=== PATIENT | female | born 1990 | race Caucasian/White ===

== ENCOUNTER 2018-11-05 18:59 | Outpatient (REF) | payer BC, SELFPAY ==
[2018-11-05 19:44] LABS: HCT 40.6 % (36.0-46.0); HGB 13.7 g/dL (12.0-15.5); Mean Corp. HGB Concentration 33.7 g/dL (32.0-36.0); Mean Corpuscular Hemoglobin 29.6 pg (27.0-33.0); Mean Corpuscular Volume 87.7 fL (80-95); Platelet Count 342 x1000/uL (130-400); RBC 4.63 m/cumm (4.00-5.20); RBC Distribution Width 11.9 % (11.7-14.6); White Blood Cell Count 11.01 k/cumm (4.4-10.8)
== END 2018-11-05 19:19 ==
LOC: NCHCN 18:59
PROVIDERS: PCP Internal Medicine; Visit Provider Nurse Practitioner Family
DX: G43.909 Migraine, unspecified, not intractable, without status migrainosus (principal)
CPT/HCPCS: 80053; 85027

== ENCOUNTER 2019-03-30 12:12 | Outpatient (CLI) | payer BC, SELFPAY ==
[2019-03-30 13:30] LABS: ALT 91 U/L (14-59); AST 32 U/L (15-37); Albumin 4.2 g/dL (3.4-5.0); Alkaline Phosphatase 85 U/L (46-116); Anion Gap 9.6 mmol/L (3-11); BUN 13 mg/dL (7-18); Bilirubin, Total 0.6 mg/dL (0.2-1.0); CO2 29.4 mmol/L (21.0-32.0); CREATININE 0.81 mg/dL (0.55-1.02); Calcium 9.7 mg/dL (8.5-10.1); Chloride 104 mmol/L (98-107); Glucose 85 mg/dL (74-106); Potassium 4.1 mmol/L (3.5-5.1); Sodium 143 mmol/L (136-145); Total Protein 7.6 g/dL (6.4-8.2)
== END 2019-03-30 12:32 ==
PROVIDERS: PCP Internal Medicine; Visit Provider Nurse Practitioner Family
DX: G43.909 Migraine, unspecified, not intractable, without status migrainosus (principal)
CPT/HCPCS: 36415; 80053

== ENCOUNTER 2019-05-10 13:00 | Outpatient (CLI) | payer BC, SELFPAY ==
[2019-05-10 14:27] LABS: ALT 21 U/L (14-59); AST 14 U/L (15-37)
== END 2019-05-10 13:20 ==
PROVIDERS: PCP Internal Medicine; Visit Provider Nurse Practitioner Psychiatric/Mental Health
DX: Z51.81 Encounter for therapeutic drug level monitoring (principal)
CPT/HCPCS: 36415; 84450; 84460

== ENCOUNTER 2020-01-20 13:55 | Outpatient (REF) | payer BC, SELFPAY ==
--- NOTE | 2020-01-20 11:50 | PAPFT_PTH ---
PATIENT: Kathy Elias LOC: [facility]#:[id number] AGE/SX: 29/F ROOM: RE01/20/[address]: Ron Cortés : 1990 BED: DIS: 01/20/2020 SPEC #: [id number] RECD: 01/20/20 17:56 STATUS: TERRENCE REJose #: [id number] ASHELY: 01/20/20 11:[address]: Ron Cortés DEPT: [facility] Cytology RECD BY: Chen Marlow ENTERED: 01/20/20 17:56 SP TYPE: PAPFT OTHR DR: Ra Kaur Tissues: 1 - CX/ENDOCX FOR PAP SMEARS Procedures: PAP THIN PREP/[facility] Screening Comments: [id number] ([facility])
== END 2020-01-20 14:15 ==
LOC: NCHCN 13:55
PROVIDERS: PCP Internal Medicine; Visit Provider Nurse Practitioner Family
DX: Z00.00 Encounter for general adult medical examination without abnormal findings (principal); Z12.4 Encounter for screening for malignant neoplasm of cervix
CPT/HCPCS: 88142; 87624

== ENCOUNTER 2020-01-21 11:30 | Outpatient (REF) | payer BC, SELFPAY ==
[2020-02-03 09:48] LABS: Helicobacter pylori Ag, Feces Negative (Negative)
== END 2020-01-21 11:50 ==
LOC: NCHCN 11:30
PROVIDERS: PCP Internal Medicine; Visit Provider Nurse Practitioner Family
DX: R10.32 Left lower quadrant pain (principal)
CPT/HCPCS: 87338

== ENCOUNTER 2020-02-10 03:16 | Outpatient (CLI) | payer BC, SELFPAY ==
[2020-02-11 21:54] LABS: SARS-CoV-2 RNA Not Detected (NotDetected); SARS-CoV-2 RNA Source Nasal/Nares
== END 2020-02-10 03:36 ==
PROVIDERS: PCP Internal Medicine; Visit Provider Surgery
DX: Z11.59 Encounter for screening for other viral diseases (principal); Z01.818 Encounter for other preprocedural examination
CPT/HCPCS: U0003

== ENCOUNTER 2020-02-14 06:58 | Day surgery (SDC) | payer BC, SELFPAY ==
[2020-02-14 07:40] VITALS: BP 117/84; PULSE 81; RESP 18; TEMP 36.7; O2SAT 97
[2020-02-14] MEDS: Lactated Ringers 1,000 ML 80 ML IV (07:55)
--- NOTE | 2020-02-14 09:10 | STOM_PTH ---
PATIENT: Kathy Elias LOC: [facility]#:[id number] AGE/SX: 29/F ROOM: RE02/14/[address]: Katelyn Leong : 1990 BED: DIS: 02/14/2020 SPEC #: [id number] RECD: 02/14/20 12:46 STATUS: TERRENCE REQ #: [id number] ASHELY: 02/14/20 09:[address]: Katelyn Leong DEPT: Surgical Specimen RECD BY: Chen Marlow ENTERED: 02/14/20 12:48 SP TYPE: STOMACH OTHR DR: Ra Kaur Tissues: 1 - BIOPSY BOWEL 2 - STOMACH BIOPSY 3 - STOMACH BIOPSY 4 - ESOPHAGUS BIOPSY 5 - ESOPHAGUS BIOPSY 6 - ESOPHAGUS BIOPSY Procedures: GROSS AND MICRO LEVEL 4 Comments: [id number]
--- NOTE | 2020-02-14 09:25 | W.PM.ENDDOP ---
Date of service: 02/14/20 Time of Service: 09:25 Endoscopy Report DATE OF PROCEDURE: 02/14/20 PRE-OP DIAGNOSIS: gerd POST-OP DIAGNOSIS: other (gastritis/ hiatal hernia/esophagitis ) PROCEDURE: ehd w/ bx SURGEON: Katelyn Leong ANESTHESIA: MAC ESTIMATED BLOOD LOSS: 1 PATHOLOGY: other COMPLICATIONS: None DISPOSITION: same day PROCEDURE DESCRIPTION: After informed consent was obtained the patient was take to the procedure room and placed in a supine position. Monitors were applied and a time out was done. The patients name, date of , procedure type, allergies to medications and metal in their body was reviewed. A bite block was placed and the patient was sedated. Once sedated and comfortable the gastroscope was advanced through the oropharynx which was grossly normal into the esophagus. The proximal and mid-esophagus were . nlIn the distal esophagus there was: mild esophagitis adn small hiatal hernia. no varices or ulcer. The scope was advanced into the stomach and through the pylorus into the 3rd portion of the duodenum. The duodenum was noted to be nl. Biopsies were done . All specimen is retrieved and no bleeding is noted. The scope was retracted back into the stomach and biopsies were done to rule out H. pylori. There were no ulcers. there is some mild gastritis. The scope was retroflexed. The cardia and fundus were noted to be normal. There small a hiatal hernia noted. The scope was retracted back into the esophagus and biopsies were done of the GE junction to rule out Perkins's. The Z line was irregular- possible some Barrtett's. No lg tongues. The scope was removed and the patient was woken up and taken back to [facility] in stable condition.
--- NOTE | 2020-02-14 09:29 | W.PM.DSUDISC ---
Discharge Plan Disposition Patient Disposition: HOME Condition: Good Discharge Details Attending Provider: Katelyn Leong Primary Care Provider: Ra Kaur [place] Meds and New Rx's Prescriptions: New sucralfate [Carafate] 1 gram tablet 1 g PO .qhs adn q8hprn 365 Days Qty: 60 RF: 12 Continued acetaminophen [Tylenol Extra Strength] 500 mg tablet 1,000 mg PO Q6H PRNRF: 0 fexofenadine [Merline Allergy] 60 mg tablet 60 mg PO Q12H RF: 0 lamotrigine [Lamictal] 100 mg tablet 100 mg PO DAILY RF: 0 gabapentin 100 mg capsule 100 mg PO QHS RF: 0 pantoprazole 40 mg tablet,delayed release (DR/EC) 40 mg PO DAILY RF: 0 montelukast 10 mg tablet 10 mg PO DAILY RF: 0 budesonide-formoterol [Symbicort] 80-4.5 mcg/actuation HFA aerosol inhaler 2 puff inhalation BID RF: 0 albuterol sulfate [Proventil HFA] 1 PUFF HFA aerosol inhaler 2 puff inhalation Q4H PRN PRNRF: 0 Discontinued ibuprofen 200 mg tablet 800 mg PO Q6H PRNRF: 0 Discharge Instructions Additional Instructions: Continue with lifestyle modifications: no alcohol, tobacco products, Aspirin or NSAID's (ibuprofen, Motrin, Naprosyn, aleve, etc), soda pop/any carbonated beverages, caffeine (including tea & chocolate), and acidic foods, (tomatoes, citrus, onions, peppermints) spicy or foods. Do not lie down for 30 minutes after eating, and do not eat 2 hours prior to bedtime. Avoid wearing tight fitting clothing/ belts -Cont protonix daily lifeslong. take on an empty stomach -stop smoking -take a carafate at bedtime. Take one prior to taking ibuprofen. -dont' drink coffee/soda on an empty stomach. -can take carafate as needed for breakthrough symptoms Activity:: no lifting over 20#'s or strenuous activity x 24 Diet:: small light meals x 24hrs Discharge Orders Discharge Orders: Discharge Order (Routine); Ordered 02/14/20 Ordered By: Katelyn Leong DS: Diagnosis Discharge Diagnosis (1) Hiatal hernia with GERD: Status: Acute
[2020-02-14 10:10] VITALS: BP 128/77; PULSE 68; RESP 16; TEMP 36.1; O2SAT 100
== END 2020-02-14 10:39 | disposition home or self-care (01) ==
PROVIDERS: PCP Internal Medicine; Visit Provider Surgery
PROC: 0DJ68ZZ Inspection of Stomach, Via Natural or Artificial Opening Endoscopic (ICD-10-PCS; CPT 43235; principal; 2020-02-14 08:30)
DX: K29.70 Gastritis, unspecified, without bleeding (principal); K44.9 Diaphragmatic hernia without obstruction or gangrene; K20.90 Esophagitis, unspecified without bleeding
CPT/HCPCS: 43239; 81025; 88305; J2001; J2704

== ENCOUNTER 2020-03-01 11:05 | Outpatient (REF) | payer BC, SELFPAY ==
[2020-03-03 12:23] LABS: Almond IgE <0.35 kU/L; Brazil Nut IgE <0.35 kU/L; Cashew IgE <0.35 kU/L; Clam IgE <0.35 kU/L; Crab IgE <0.35 kU/L; Hazelnut-Food IgE <0.35 kU/L; Lobster IgE <0.35 kU/L; Milk, IgE <0.35 kU/L; Oyster IgE <0.35 kU/L; Peanut IgE <0.10 kU/L (<0.70); Pecan-Food IgE <0.35 kU/L; Scallop IgE <0.35 kU/L; Shrimp IgE <0.35 kU/L; Soybean IgE <0.35 kU/L; Walnut-Food IgE <0.35 kU/L
[2020-03-06 12:44] LABS: IgA 172 mg/dL (85-499); Interpretation (See Note); Tissue Transglutaminase IgA <1.2 U/mL (<4.0)
[2020-03-07 14:10] LABS: CLASS 0; Egg Whole IgE <0.10 kU/L (<0.35)
== END 2020-03-01 11:25 ==
LOC: LBN 11:05
PROVIDERS: PCP Internal Medicine; Visit Provider Surgery
DX: J45.20 Mild intermittent asthma, uncomplicated (principal); K20.0 Eosinophilic esophagitis; K21.9 Gastro-esophageal reflux disease without esophagitis; K44.9 Diaphragmatic hernia without obstruction or gangrene
CPT/HCPCS: 82784; 83516; 86003

== ENCOUNTER 2021-08-22 15:32 | Outpatient (REF) | payer BC, SELFPAY ==
[2021-08-22 16:05] LABS: Calculated LDL 101 mg/dL (<100); Cholesterol 169 mg/dL (<200); HDL Cholesterol 54 mg/dL (40-60); Triglyceride 70 mg/dL (<150)
== END 2021-08-22 15:33 | disposition home or self-care (01) ==
LOC: NCHCN 15:32
PROVIDERS: PCP Internal Medicine; Visit Provider Physician Assistant
DX: Z13.220 Encounter for screening for lipoid disorders (principal)
CPT/HCPCS: 80061

== ENCOUNTER 2021-12-07 10:27 | Emergency (ER) | payer BC, SELFPAY ==
[2021-12-07 10:33] VITALS: BP 119/67; PULSE 76; RESP 18; TEMP 36.7; O2SAT 97
--- NOTE | 2021-12-07 10:45 | W.ED.GENAD ---
Discharge Plan Disposition Patient Disposition: HOME Condition: Stable Discharge Details Clinical Impression: Finger laceration Primary Care Provider: Ra Kaur ED Provider: Adithya Hurley Home Meds and New Rx's Prescriptions: Continued acetaminophen [Tylenol Extra Strength] 500 mg tablet 1,000 mg PO Q6H PRN fexofenadine [Merline Allergy] 60 mg tablet 60 mg PO Q12H lamotrigine [Lamictal] 100 mg tablet 100 mg PO DAILY gabapentin 100 mg capsule 100 mg PO QHS Rx Instructions: 1-2 caps every night as needed pantoprazole 40 mg tablet,delayed release (DR/EC) 40 mg PO DAILY montelukast 10 mg tablet 10 mg PO DAILY budesonide-formoterol [Symbicort] 80-4.5 mcg/actuation HFA aerosol inhaler 2 puff inhalation BID albuterol sulfate [Proventil HFA] 1 PUFF HFA aerosol inhaler 2 puff inhalation Q4H PRN PRN sucralfate [Carafate] 1 gram tablet 1 g PO .qhs adn q8hprn 365 Days Qty: 60 12RF Rx Instructions: take 1 at bedtime and q8hrs prn heartburn citalopram 20 mg Tablet 20 mg PO DAILY Discharge Instructions Instructions: Finger Laceration (ED) Additional Instructions: Using shared decision making, at this time the decision to not proceed with suturing was decided. Instead opted for a finger splint, wear for the next 7-10 days to avoid reopening the laceration. [id number] Tylenol and/or Motrin as directed for discomfort. Tetanus status was updated today. Please watch for new or worsening symptoms and return to the ER for any concerns Medical Decision Making 31-year-old female, [id number], presents for a right finger laceration she sustained about 1 hour ago. Tetanus status will be updated today. We discussed the risk and benefits of suturing, she declines at this time. Given the presentation of the laceration I believe this to be perfectly reasonable. The wound was thoroughly cleaned and irrigated. An antibiotic dressing was applied. A finger splint has been applied. We discussed the importance of wearing the finger splint to avoid bending the finger and reopening the laceration. Standard discharge and return precautions were provided. Patient understands, is agreeable to this plan, and has no additional questions or concerns upon discharge. This documentation was generated using [employer] system, please disregard any oddities of phrase or misspellings. Medical Records Medical records reviewed: Yes I reviewed the patient's medical records. HPI General Mode of arrival: ambulatory. Date/Time Provider Initiated Documentation: 12/07/21 10:44. Limitations to Documentation: no limitations. Information obtained by: patient. History of Present Illness 31 year old F presents to the emergency department with the chief complaint of R middle finger lac, described as mild, with intensity rated at 3. Quality is described as aching, and is localized to the right and upper extremity. Patient reports no radiation. Patient started experiencing this hour(s) (1) and it has been constant. Immobilization improves symptom(s), Movement worsens symptoms . Patient notes no other symptoms.. Patient did receive the following treatments prior to arrival, none Related Data Home Medications Medication Instructions Recorded Confirmed albuterol sulfate 90 mcg/actuation 2 puff inhalation Q4H PRN PRN 08/13/15 12/07/21 aerosol inhaler (Proventil HFA) budesonide-formoterol HFA 80 2 puff inhalation BID 02/01/20 12/07/21 mcg-4.5 mcg/actuation aerosol inhaler (Symbicort) gabapentin 100 mg capsule 100 mg PO QHS 02/01/20 12/07/21 lamotrigine 100 mg tablet 100 mg PO DAILY 02/01/20 03/01/20 (Lamictal) montelukast 10 mg tablet 10 mg PO DAILY 02/01/20 03/01/20 pantoprazole 40 mg tablet,delayed 40 mg PO DAILY 02/01/20 12/07/21 release acetaminophen 500 mg tablet 1,000 mg PO Q6H PRN 02/04/20 03/01/20 (Tylenol Extra Strength) fexofenadine 60 mg tablet (Merline 60 mg PO Q12H 02/04/20 12/07/21 Allergy) sucralfate 1 gram tablet (Carafate) 1 g PO .qhs adn q8hprn 365 days 02/14/20 12/07/21 #60 tabs citalopram 20 mg tablet 20 mg PO DAILY 12/07/21 12/07/21 Previous Rx's Medication Instructions Recorded sucralfate 1 gram tablet (Carafate) 1 g PO .qhs adn q8hprn 365 days 02/14/20 #60 tabs Allergies Allergy/AdvReac Type Severity Reaction Status Date / Time cat dander Allergy Mild Verified 12/07/21 10:36 General Stated Complaint: Laceration GWEN: 4 Review of Systems Constitutional Constitutional: Denies fever(s) Musculoskeletal Musculoskeletal: Denies arthralgias, Denies numbness, Denies stiffness and Denies tingling Integumentary/Breasts Skin/Breast: Denies rash Neurologic Neurologic: Denies numbness and Denies tingling PFSH All Active Problems (Updated 12/07/21 @ 11:12 by ANUEL Jacobo) Finger laceration (Acute) Asthma, mild intermittent (Acute) Allergic eosinophilic esophagitis (Acute) Hiatal hernia with GERD (Acute) Medical History Abdominal pain, left lower quadrant Anxiety associated with depression Bipolar II disorder GERD (gastroesophageal reflux disease) Lower back pain Migraine without aura Sleep disorder TMJ tenderness, bilateral Surgical History H/O wisdom tooth extraction History of esophagogastroduodenoscopy (EGD) (~02/14/20) Family History Father Essential hypertension Grandmother Stroke Social History Smoking/Tobacco Use Status: Current-Occasional Smoking risk assessment performed?: Yes Alcohol Intake: current Alcohol Intake frequency: holidays/special occasions only Alcohol type: wine and hard liquor Drug use: Daily Substance use type: marijuana Details: no consistent tobaccon for 4 years Current gender identity: female Do you feel safe at home: Yes Do you feel safe in your relationship?: Yes Exam Const General: cooperative, healthy appearing, comfortable and no acute distress Orientation: alert and awake HENMT Head: normal to inspection, normocephalic and atraumatic Eyes Conjunctivae: conjunctivae normal Neck Neck: normal visual inspection, full ROM, trachea midline and supple Resp Effort & Inspection: normal respiratory effort and able to speak in complete sentences Cardio Rate: regular rate Rhythm: regular rhythm Skin General skin exam: no rashes or lesions noted Neuro General: patient alert, patient awake, moves all extremities and no focal motor deficits Cognition: normal cognition Speech: speech normal Gait: normal gait Motor: muscle tone normal throughout Sensory Exam: no sensory deficits noted Extrem General: full ROM and capillary refill normal Hand/finger images: 1. There is a well approximated, not actively bleeding, 2 cm laceration over the extensor aspect of the third digit, PIP joint. Neuro, vascular, tendon intact. 5-5 strength. Normal capillary refill Psych Appearance: grossly normal Mental Status: mental status grossly normal Course Vital Signs Vital signs: Vital Signs Temperature 36.7 C 12/07/21 10:33 Pulse 76 12/07/21 10:33 Respiratory Rate 18 12/07/21 10:33 Blood Pressure 119/67 12/07/21 10:33 Pulse Oximetry 97 12/07/21 10:33 Temperature 36.7 C 12/07/21 10:33 Temperature Source Temporal Artery Scan 12/07/21 10:33 Pulse 76 12/07/21 10:33 Respiratory Rate 18 12/07/21 10:33 Respiratory Effort Non-Labored 12/07/21 10:38 Blood Pressure 119/67 12/07/21 10:33 Blood Pressure Position Sitting 12/07/21 10:33 Pulse Oximetry 97 12/07/21 10:33 Oxygen Delivery Method Room Air 12/07/21 10:33 Oxygen Flow Rate 0 12/07/21 10:33 PAWSS Have you Been Recently Intoxicated or Drunk Within the Last 30 days?: No Have you Ever Experienced Previous Episodes of Alcohol Withdrawal?: No Have you ever Experienced Withdrawal Seizures?: No Have you ever Experienced Delirium Tremens(DT)s?: No Have you ever undergone Alcohol Rehabilitation Treatment (i.e, inpt ot outpatient treatment programs)?: No Have you ever Experienced Blackouts?: No Have you ever Combined Alcohol with other Downers within the last 90 days?: No Have you ever Combined Alcohol with any other Substance of Abuse during the last 90 days?: No Positive Blood Alcohol level on Presentation? [PCS.BAL]: No Evidence of Increased Autonomic Activity (i.e. HR>120, tremor, sweating, agitation, nausea)?: No Result: 0
== END 2021-12-07 11:23 | disposition home or self-care (01) ==
PROVIDERS: Emergency Provider Physician Assistant; PCP Internal Medicine
DX: S61.212A Laceration without foreign body of right middle finger without damage to nail, initial encounter (principal); F17.200 Nicotine dependence, unspecified, uncomplicated; Z23 Encounter for immunization; X58.XXXA Exposure to other specified factors, initial encounter
CPT/HCPCS: 29130; 90471; 99282

== ENCOUNTER 2023-09-12 10:18 | Outpatient (REF) | payer BC, SELFPAY ==
[2023-09-12 19:46] LABS: Abs Immature Grans 0.03 10^3/uL (0.0-0.06); Absolute Basophil Count 0.06 10^3/uL (0.0-0.2); Absolute Lymphocyte Count 1.95 10^3/uL (1.2-3.4); Absolute Monocyte Count 0.49 10^3/uL (0.1-0.8); Absolute Neutrophil Count 5.08 10^3/uL (1.2-6.7); Basophils % 0.7 %; Eosinophils % 8.4 %; HCT 39.8 % (36.0-46.0); Immature Grans % 0.4 %; Lymphocytes % 23.5 %; MCH 29.2 pg (27.0-33.0); MCHC 32.7 % (32.0-36.0); MCV 89 fL (80-95); MPV 9.7 fL (8.0-11.0); Monocytes % 5.9 %; Neutrophils % 61.1 %; Platelet Count 302 10^3/uL (130-400); RBC 4.45 10^6/uL (3.93-5.22); RDW 11.6 % (11.7-14.6); RDW-SD 37.8 fL; WBC 8.31 10^3/uL (4.4-10.8)
[2023-09-12 20:02] LABS: Iron 61 ug/dL (50-170); Total Iron Binding Capacity 284 ug/dL (250-450); Transferrin Sat 21 % (15-50)
[2023-09-12 20:20] LABS: Calculated LDL 99 mg/dL (<100); Cholesterol 166 mg/dL (<200); Ferritin 69 ng/mL (8-252); HDL Cholesterol 60 mg/dL (40-60); TSH 1.59 uIU/Ml (0.36-3.74); Triglyceride 35 mg/dL (<150)
[2023-09-12 20:38] LABS: FREE T4 0.96 ng/dL (0.76-1.46)
== END 2023-09-12 10:19 | disposition home or self-care (01) ==
LOC: NCHCN 10:18
PROVIDERS: PCP Physician Assistant; Visit Provider Physician Assistant
DX: R53.83 Other fatigue (principal); F41.8 Other specified anxiety disorders; Z13.220 Encounter for screening for lipoid disorders; K21.9 Gastro-esophageal reflux disease without esophagitis
CPT/HCPCS: 80061; 82728; 83540; 83550; 84439; 84443; 85025

== ENCOUNTER 2024-03-09 01:53 | Outpatient (CLI) | payer BC, SELFPAY ==
--- NOTE | 2024-03-09 07:30 | DI.RAD_ITS ---
Exam(s) XR FOOT LT COMPLETE EXAM: XR FOOT LT COMPLETE CLINICAL HISTORY: Left foot pain,m79.672. TECHNIQUE: 2D digital imaging was performed. COMPARISON: CR XR FOOT RT COMPLETE from 03/09/2024 FINDINGS: 3 views No evidence of fracture or diastasis of the Lisfranc joint. Bone density normal. No osseous lesions . No pes planus. No inferior calcaneal spur. No enthesophytes. Great toe metatarsophalangeal join t appears unremarkable. There are no abnormal soft tissue densities. No osseous lesions nor erosion s. IMPRESSION: No significant osseous findings in the left foot. DATA REPOSITORY: RADIATION DOSE DELIVERED:
--- NOTE | 2024-03-09 07:30 | DI.RAD_ITS ---
Exam(s) XR FOOT RT COMPLETE EXAM: XR FOOT RT COMPLETE CLINICAL HISTORY: Right foot pain,m79.671. TECHNIQUE: 2D digital imaging was performed. COMPARISON: No exams were available for comparison FINDINGS: 3 views No evidence of fracture nor diastasis of the Lisfranc joint. Bone density normal. No osseous lesion s nor erosions. Great toe metatarsophalangeal joint appears unremarkable. No pes planus. No inferi or calcaneal spur. No enthesophytes. Incidentally noted is a small 1 mm soft tissue calcification on the volar aspect of the great toe at approximately the midshaft level of the proximal phalanx. IMPRESSION: No acute osseous findings. Small 1 mm soft tissue calcification in the great toe as described above. DATA REPOSITORY: RADIATION DOSE DELIVERED:
== END 2024-03-09 02:13 ==
LOC: DI 01:54
PROVIDERS: PCP Physician Assistant; Visit Provider Podiatrist
DX: M79.672 Pain in left foot (principal); M79.671 Pain in right foot
CPT/HCPCS: 73630

== ENCOUNTER 2024-04-12 01:30 | Outpatient (CLI) | payer BC, SELFPAY ==
--- NOTE | 2024-04-12 | DI.MAMMO_ITS ---
Exam(s) MAMMO SCREENING EXAM: MAMMO SCREENING CLINICAL HISTORY: SCREENING MAMMO Z12.31,genetic high risk of breast ca. TECHNIQUE: Bilateral full field digital CC and MLO mammographic images were obtained with 3D tomosyn thesis and utilizing computer aided detection (CAD). COMPARISON: Prior outside mammograms March 2023 were reviewed,. FINDINGS: There are no new significant findings in the vicinity of the biopsy marker clip in the inferomedial a spect of the right breast. There are no new spiculated masses nor new malignant appearing microcalcification groups. There is no significant architectural distortion nor skin thickening-retraction. IMPRESSION: No radiographic evidence of malignancy. BI-RADS Category 2 - Benign Findings Breast Density - Category B - Scattered areas of fibroglandular density Breast density Category C or D implies that the patient has dense breast tissue. Dense breast tissue can make it harder to find cancer on a mammogram. Dense breast tissue is also associated with an incr eased risk of breast cancer. This information about the result of the mammogram report was provided to the patient to raise their awareness. Use this report when you speak with the patient about their risks for breast cancer, which includes their family history. At that time, you may recommend additional screening tests (Ultrasoun d or MRI) as these tests may add significant information. A negative radiographic report should not delay biopsy if a dominant or clinically suspicious mass is present. Up to ten percent of cancers are not identified on mammography. A negative report may reinforce clinical impression. Adenosis and dense breasts may obscure an underlying neoplasm. False positive reports average 6 to 10%. Patient will receive a letter notifying them of these results.
== END 2024-04-12 01:50 ==
LOC: DI 01:30
PROVIDERS: PCP Physician Assistant; Visit Provider Physician Assistant
DX: Z12.31 Encounter for screening mammogram for malignant neoplasm of breast (principal); R92.323 Mammographic fibroglandular density, bilateral breasts; D24.1 Benign neoplasm of right breast
CPT/HCPCS: 77063; 77067